=== PATIENT | female | born 1940 | race Caucasian/White ===

== ENCOUNTER → 2017-05-04 | Outpatient (CLI) | payer MEDICARE, OTHER ==
[~2017-05-04] MED LIST: COREG; HYDR-757 PO; HYDR1TAB PO; SITA1TAB2; [UNRECOGNIZED DRUG - OTHER]
--- NOTE | 2017-05-04 11:25 | Diagnostic Imaging Report ---
Three views of the sacrum and coccyx. INDICATION: Sacrococcygeal pain after injury. FINDINGS: There is satisfactory alignment of the SI joints. No definite fracture is seen. There is suggestion of mild osteopenia. Mild degenerative sclerotic changes of SI joints noted. IMPRESSION: No obvious fracture seen. Dictated by: Dictated on workstation # [id number]
== END ==
LOC: RAD 10:19
DX: M53.3 Sacrococcygeal disorders, not elsewhere classified (principal)
CPT/HCPCS: 72220

== ENCOUNTER → 2017-12-24 | Outpatient (CLI) | payer MEDICARE, OTHER ==
--- NOTE | 2017-12-24 12:07 | Diagnostic Imaging Report ---
INDICATION: Mid thoracic pain. TIME OF EXAM: 11:48 AM FINDINGS: Multiple views of the thoracic spine were obtained. A mild right convexity thoracic scoliotic curvature is noted. The vertebral body heights are maintained. No acute compression fracture is identified. There is multilevel degenerative disc disease with variable disc space narrowing. There are prominent osteophytes at multiple levels. The pedicles are intact. IMPRESSION: Thoracic spondylosis. No acute bony abnormality is detected. Dictated by: Dictated on workstation # [id number]
== END ==
LOC: RAD 11:13
DX: M47.814 Spondylosis without myelopathy or radiculopathy, thoracic region (principal)
CPT/HCPCS: 72072

== ENCOUNTER → 2018-01-03 | Outpatient (CLI) | payer MEDICARE, OTHER ==
--- NOTE | 2018-01-03 10:34 | Diagnostic Imaging Report ---
INDICATION: Age related osteoporosis. COMPARISON: No prior studies are available for comparison. FINDINGS: Bone mineral analysis of the lumbar spine and both hips was performed. The bone mineral density of the lumbar spine from L2 to L4 is 1.512 with a T score of 2.6. The bone mineral density of the left femoral neck is 0.814 with a T score of -1.6. Bone mineral density in the right femoral neck is 0.783 with a T score of -1.8. IMPRESSION: Normal bone mineral density of the lumbar spine with osteopenia of the bilateral femoral necks. Dictated by: Dictated on workstation # [id number]
== END ==
LOC: RAD 08:58
DX: M81.0 Age-related osteoporosis without current pathological fracture (principal); M85.88 Other specified disorders of bone density and structure, other site
CPT/HCPCS: 77080

== ENCOUNTER → 2019-08-21 | Outpatient (CLI) | payer MEDICARE, OTHER ==
--- NOTE | 2019-08-21 13:18 | Diagnostic Imaging Report ---
EXAMINATION: PA and lateral chest at 01:02 p.m. INDICATION: Back pain. FINDINGS: The borderline cardiomegaly noted on the prior exam of 12/15/2015 is again evident and no different. There is no sign of failure, pneumonia or pleural effusion to indicated an acute abnormality. The mediastinum is not widened. The osseous structures are intact. IMPRESSION: There is no evidence for active disease. When compared to the prior study, there has been no significant change. Dictated by: Dictated on workstation # [id number]
== END ==
LOC: RAD 12:39
PROVIDERS: ATTEND Nurse Practitioner Family
DX: M54.9 Dorsalgia, unspecified (principal); R07.89 Other chest pain
CPT/HCPCS: 71046

== ENCOUNTER → 2019-12-18 | Outpatient (CLI) | payer MEDICARE, OTHER ==
--- NOTE | 2019-12-18 15:15 | Diagnostic Imaging Report ---
PROCEDURE: US carotid duplex, bilateral. TECHNIQUE: Multiple real-time grayscale images were obtained over the carotid arteries in various projections, bilaterally. Additional spectral analysis and color Doppler duplex images were also obtained. INDICATION: Carotid artery stenosis. FINDINGS: Moderate plaquing of the right carotid bifurcation is seen. There is mild plaquing at the left carotid bifurcation and proximal left ICA. Velocities appear to be fairly normal bilaterally. No velocity elevation or stenosis is detected. Both vertebral arteries show antegrade flow. IMPRESSION: Moderate right and mild left carotid plaque. There is no evidence of hemodynamically significant stenosis. Parameters based on the consensus panel [employer]on[employer] and Doppler ultrasound criteria published August 2003, Radiology, Volume 229. DOPPLER (peak systolic velocity M/S Right Left CCA .89 .80 ICA Proximal 1.09 .55 ICA Mid .82 .51 ICA Distal .52 .52 RATIO 1.2 .7 ECA .83 .70 VERT .31 .35 Dictated by: Dictated on workstation # [id number]
== END ==
LOC: CARD 11:18
DX: I65.23 Occlusion and stenosis of bilateral carotid arteries (principal); I51.7 Cardiomegaly
CPT/HCPCS: 93306; 93880